=== PATIENT | male | born 1995 | race Caucasian/White ===

== ENCOUNTER 2016-05-06 09:59 | Inpatient (IN) | payer OTHER ==
[~2016-05-06] VITALS: Ht 172.7 cm; Wt 72.7 kg
--- NOTE | ~2016-05-06 | INDIVTXPLN ---
"PATIENT: RODRIGO TELLO E | | [facility] UNIT #: [id number] | [address] AGE/SEX: 21 M : [birth year] | [address] | [place] [phone] ADMIT/REG DATE: 05/06/16 | ROOM: [facility] LOC: ADTC | ADTC | Individualized Treatment Plan Date: 13 MAY 2016 Problem Statement/Issue Identified: RODRIGO HAS CONTINUED TO ABUSE CHEMICALS INSPITE OF THREE PREVIOUS TREATMENT ATTEMPTS WHICH HAS RESULTED IN STRAINED FAMILY RELATIONSHIPS, SABOTAGED EDUCATION EFFORTS, CRIMINAL CHARGES AND A LEGAL RECORD. Goal: RODRIGO WILL IDENTIFY AND TAKE RESPONSIBILITY FOR SPECIFIC EXAMPLES OF CONSEQUENCES RESULTING FROM HIS DRINKING & DRUGING BEHAVIORS AND STINKIN THINKIN. Objectives/Activities to achieve goal: 1. Rodrigo will complete GETTING STARTED IN TREATMENT packet identifying his feelings about being in treatment again, his drinking/drugging history and a brief life story. Rodrigo will process his work with his primary counselor and selected pages in group. Due Date: Complete: Incomplete: 2. Rodrigo will read UbaloRuthieSyntricityIN highlighting thinking and behavioral examples that parallel his own. Rodrigo will process his work and any insights gained with his primary counselor. Due Date: Complete: Incomplete: 3. Rodrigo will complete an honest and thorough STEP ONE identifying specific examples of powerlessness and unmanagability in his addiction. These examples will include examples of preoccupation, high risk/violent behaviors, values compromised, etc. He will process his work with his primary counslor and selected pages with his peer group. Due Date: Complete: Incomplete: 4. Rodrigo will complete and process MY CHANGE PLAN detailing stages of recovery and action he is willing to take to facilite change and ongoing sobriety. He will process his work with his counselor and selected pages with his peer group. Due Date: Complete: Incomplete: Client signature Date Counselor signature Date Outcome/Measurement of Progress Towards Goal: Counselor's signature Date "
--- NOTE | ~2016-05-06 | INDIVTXPLN ---
"PATIENT: RODRIGO TELLO E | | [facility] UNIT #: [id number] | [address] AGE/SEX: 21 M : [birth year] | [address] | [place] [phone] ADMIT/REG DATE: 05/06/16 | ROOM: [facility] LOC: ADTC | ADTC | Individualized Treatment Plan Date: 13 MAY 2016 Problem Statement/Issue Identified: RODRIGO VERBALIZED GUILT AND SHAME FOR THE PAIN, DISAPPOINTMENT AND WORRY HE HAS CAUSED FAMILY MEMBERS IN THE COURSE OF HIS ADDICTION. Goal: RODRIGO WILL TAKE OWNERSHIP OF THESE BEHAVIORS/ATTITUDES AND PROCESS THEM ONE ON ONE WITH FAMILY MEMBERS. Objectives/Activities to achieve goal: 1. Rodrigo will be willing to write and share FEELINGS LETTERS with each of his parents in Family Group. Due Date: Complete: Incomplete: 2. Rodrigo will write a VENT LETTER/FEELINGS LETTER to his brother and will process it one on one or in Family Group if his brother is able to attend. Due Date: Complete: Incomplete: 3. Rodrigo will write a FEELINGS LETTER to his grandfather and a GOODBYE LETTER to his grandmother who passed recently. Rodrigo will be willing to process these letters with his family. Due Date: Complete: Incomplete: Client signature Date Counselor signature Date Outcome/Measurement of Progress Towards Goal: Counselor's signature Date "
--- NOTE | ~2016-05-06 | CLPRLASSUM ---
"PATIENT: KOFI TELLO E | | [facility] UNIT #: [id number] | [address] AGE/SEX: 21 M : [birth year] | [address] | [place] [phone] ADMIT/REG DATE: 05/06/16 | ROOM: [facility] LOC: ADTC | ADTC | Client Problem List/Assessment Summary Date: 13 MAY 2016 Problems identified by the client: PRIMARY SUPPORT GROUP, SOCIAL, OCCUPATIONAL, EDUCATION, FINANCIAL, LEGAL Problems identified by significant others: SAME ABOVE Client's Strengths as Identified by Client: OUTGOING, HELPFUL, KIND WHEN SOBER Problem List: Joshua KIRBY HAS CONTINUED TO ABUSE CHEMICALS INSPITE OF THREE PREVIOUS TREATMENT EPISODES WHICH HAS RESULTED IN LEGAL PROBLEMS AND A CRIMINAL RECORD. Joshua KIRBY NEEDS TO IDENTIFY POTENTIAL REALAPSE TRIGGERS/ISSUES AND DEVELOP A PLAN ON HOW TO DEAL WITH THEM TO AVOID ANOTHER RELAPSE. Joshua KIRBY VERBALIZES GUILT AND SHAME FOR THE NEGATIVE IMPACT HIS ALCOHOL/DRUG USE HAS HAD ON HIS FAMILY. KOFI'S ONGOING CHEMICAL USE HAS CAUSED PARTICULAR ESTRANGEMENT WITH HIS BROTHER. Joshua KIRBY VERBALIZES A BELIEF IN GOD BUT HAS RELIED INSTEAD ON DRUGS/ALCOHOL TO COPE WITH LIFE STRESSORS AND DISAPPOINTMENTS. Code Matthews: T: to be addressed during course of treatment O: problem noted, expected to resolve itself with abstinence--specific tx plan not required R: problem noted, will be referred upon discharge PRIMARY COUNSELOR: JOVON DUNCAN [facility]"
--- NOTE | ~2016-05-06 | INDIVTXPLN ---
"PATIENT: RODRIGO TELLO E | | [facility] UNIT #: [id number] | [address] AGE/SEX: 21 M : [birth year] | [address] | [place] [phone] ADMIT/REG DATE: 05/06/16 | [facility] LOC: ADTC | ADTC | Individualized Treatment Plan Date: 27 MAY 2016 Problem Statement/Issue Identified: RODRIGO NEEDS TO IDENTIFY POTENTIAL RELAPSE TRIGGERS/ISSUES AND DEVELOP A PLAN TO DEAL WITH THEM EFFECTIVELY AND AVOID ANOTHER RELAPSE. Goal: CLIENT WILL EXAMINE AND IDENTIFY PAST THINKING/BEHAVIORS THAT HAVE RESULTED IN RELAPSE. Objectives/Activities to achieve goal: 1. Rodrigo will complete RELAPSE PREVENTION packet and will process his work with primary counselor. Due Date: Complete: Incomplete: 2. Rodrigo will be willing to read ACCEPTANCE/THE PROMISES at least once a day. Client needs to share the positive effects of this with his counselor and peer group. Due Date: Complete: Incomplete: 3. Rodrigo needs to write out his fears and place them in the God Box every day or more if necessary! Client needs to share the positive effects of this with his counselor and his peer group. Due Date: Complete: Incomplete: Client signature Date Counselor signature Date Outcome/Measurement of Progress Towards Goal: Counselor's signature Date "
--- NOTE | ~2016-05-06 | TXPLANREV ---
"PATIENT: KOFI TELLO | | [facility] UNIT #: [id number] | [address] AGE/SEX: 21 M : [birth year] | [address] | [place] [phone] ADMIT/REG DATE: 05/06/16 | ROOM: [facility] LOC: ADTC | ADTC | Treatment Plan/Staffing Review Date: 20 MAY 2016 Treatment plan was reviewed and determined appropriate as written: TREATMENT PLAN DETERMINED APPROPRIATE WRITTEN. Treatment plan was reviewed and the following changes/addition/deletions are necessary: NO CHANGES/ADDITIONS/DELETIONS ARE NECESSARY. Discharge plans were reviewed and determined appropriate as previously documented: CLIENT HAS VERBALIZED WILLINGNESS TO ENTER A DETENTION HOUSE UPON COMPLETION OF RESIDENTIAL TREATMENT. Discharge plans were reviewed and determined to be as follows: TENTATIVE DISCHARGE DATE IS 06/07/2016. Other pertinent issues discussed during this staffing review include: CLIENT IS MAKING GOOD PROGRESS ON WRITTEN WORK. HE STRUGGLES WITH CHANGES HE WILL NEED TO MAKE TO BE SUCCESSFUL IN HIS RECOVERY EFFORTS. HIS WILLINGNESS TO GO TO A DETENTION HOUSE IS A BIG STEP. CLIENT'S FAMILY IS SUPPORTIVE AND ATTENDING EDUCATION PROGRAMING AND FAMILY GROUPS. CLIENT IS WORKING ON STEP ONE, JORGE BABY AND FEELINGS LETTERS. Staff Present: CATE GREY PRIMARY COUNSELOR: JOVON DUNCAN [facility] Client Signature Counselor Signature Date Time "
--- NOTE | ~2016-05-06 | RESCARESUM ---
"PATIENT: KOFI TELLO | | 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 THOUGH CLIENT STUGGLED AT TIMES WITH FRUSTRATION, FEAR, ANGER HE WAS ABLE TO DRAW ON THE SUPPORT OF HIS PEERS AND STAFF. Continued Obstacles to Sobriety/Relapse Issues: ANGER, IMPULSE CONTROL, BTF-OM-WJCCTAP THINKING, IMPATIENCE, SELF-CENTEREDNESS, HYPER-SENSITIVITY, FEAR, FEAR, FEAR, FAILURE TO FOLLOW THROUGH WITH AFTERCARE RECOMMENDATIONS, AA/NA FELLOWSHIP. Family Issues Addressed: FAMILY ATTENDED ALL SESSIONS AND ARE VERY SUPPORTIVE Y Individual Therapy Y Group Therapy Y Educational Series on Substance Abuse Y Parents/Significant Others Attended Family Program N Acute Medical Problems During the Course of Treatment Y Accepting of Substance Abuse Problem Completed AA Step # ONE During This Level of Care Significant Incidences During Treatment: CLIENT IS CONCRETE IN HIS THINKING; OFTEN ASSUMES THE WORST OUTCOME; A FOLLOWER Reason For Discharge: Y Completed Residential TX Goals and Ready For Next Level of Care Continuing Care Plan/Recommendations: Y Sponsor Y AA Meetings/NA Meetings Y [address] [place] PATIENT: KOFI TELLO | | [facility] UNIT #: [id number] | [address] AGE/SEX: 21 M : [birth year] | [address] | [place] [phone] ADMIT/REG DATE: 05/06/16 | ROOM: [facility] LOC: ADTC | ADTC | Summary of Residential Care Specific Continuing Care Plan: CLIENT WILL BE ADMITTED TO THE [facility] SHORTLY AFTER COMPLETION AND DISCHARGE FROM RESIDENTIAL TREATMENT. STAFF RECOMMENDS THAT CLIENT RESIDE AT [facility] FOR A MINIMUM OF SIX MONTHS OR UNTIL DISCHARGED WITH STAFF APPROVAL. CLIENT NEEDS TO FOLLOW ALL GUIDELINES, EXPECTATIONS AND AFTERCARE RECOMMENDATIONS OF [facility]. CLIENT NEEDS TO ATTEND AT LEAST 3 AA/NA MEETINGS EACH WEEK AND MAINTAIN AT LEAST WEEKLY CONTACT WITH AN AA/NA SPONSOR FOR THE NEXT 3-6 MONTHS. PRIMARY COUNSELOR: JOVON DUNCAN [facility]"
--- NOTE | ~2016-05-06 | INDIVTXPLN ---
PATIENT: RODRIGO TELLO E | | [facility] UNIT #: [id number] | [address] AGE/SEX: 21 M : [birth year] | [address] | [place] [phone] ADMIT/REG DATE: 05/06/16 | ROOM: [facility] LOC: ADTC | ADTC | Individualized Treatment Plan Date: 27 MAY 2016 Problem Statement/Issue Identified: RODRIGO PROFESSES A BELIEF IN GOD BUT HIS CHEMICAL USE HAS DIMINISHED HIS TRUST IN GOD. Goal: RODRIGO WILL PRACTICE "LET GO AND LET GOD" ON A DAILY BASIS TO BEGIN TO REBUILD HIS TRUST IN HIS HIGHER POWER. Objectives/Activities to achieve goal: 1. Rodrigo will read LETTING GO OF THE NEED TO CONTROL highlighting those thinking and behavior errors that parallel his own experience. Due Date: Complete: Incomplete: Client signature Date Counselor signature Date Outcome/Measurement of Progress Towards Goal: Counselor's signature Date
--- NOTE | ~2016-05-06 | TXPLANREV ---
"PATIENT: KOFI TELLO | | [facility] UNIT #: [id number] | [address] AGE/SEX: 21 M : [birth year] | [address] | [place] [phone] ADMIT/REG DATE: 05/06/16 | ROOM: [facility] LOC: ADTC | ADTC | Treatment Plan/Staffing Review Date: 27 MAY 2016 Treatment plan was reviewed and determined appropriate as written: TREATMENT PLAN IS APPROPRIATE WRITTEN. Treatment plan was reviewed and the following changes/addition/deletions are necessary: ADDITIONAL TREATMENT PLANS HAVE BEEN CREATED TO FOCUS ON SPIRITUALITY, ANGER/RESENTMENTS Discharge plans were reviewed and determined appropriate as previously documented: DISCHARGE PLANS ARE APPROPRIATE PREVIOUSLY DOCUMENTED. Discharge plans were reviewed and determined to be as follows: CLIENT HAS SCREENED WITH [facility] AND [facility]. STAFF RECOMMENDATION PREFERS THAT CLIENT ENTER [facility] BECAUSE OF THE STRUCTURE AND ACCOUNTABILITY THEY WILL PROVIDE. TENTATIVE DISCHARGE DATE IS 07 JUNE 2016. CLIENT WILL LIKELY BE DISCHARGED EARLIER IF A BED BECOMES AVAILABLE AT [facility]. Other pertinent issues discussed during this staffing review include: CLIENT HAS DONE GOOD WORK ON WRITTEN OBJECTIVES. HIS FAMILY HAS BEEN HERE AND FEELINGS LETTERS PROCESSED WHICH SEEMED TO PROVIDE HEALING. CLIENT STRUGGLES WITH SELF-WILL VS GOD'S WILL WHICH HE WILL BE WORKING ON UNTIL HE DISCHARGES. Staff Present: CATE VELÁZQUEZ PRIMARY COUNSELOR: JOVON DUNCAN [facility] Client Signature Counselor Signature Date Time "
--- NOTE | 2016-05-06 18:39 | NUR ---
Education: 1 Hour. Client watched "Picking up the Pieces" video.
--- NOTE | 2016-05-06 19:29 | NUR ---
ADMISSION NOTE Client is a 21 y/o single male who states that he self referred to treatment and was brought here today by a friend. Client resides in [place] with his mom and dad. Client anticipates family group participation from his mom, dad and brother. Client states NKMA and brings no medications with him today. Client states DOC is alcohol, last used a week ago when client was consuming a 12-pack a day. Client also stqates marijuana use, last used a week ago when charlotte was using 3.5 grams daily. Rights/Responsibilities: Copy given and explained to client. Signed and accepted by client. Client oriented to physical lay out of the ADTC unit, given Big Book and admission packet. A Sergey was assigned. Cj
--- NOTE | 2016-05-06 23:06 | NUR ---
Tech note: Clt played a game for recreation and attended onsite AA mtg. Clt searched, checked into room, seen by and had first intro to grp. Clt was redirected for walking halls without shoes on. SE was coming tx.
--- NOTE | 2016-05-07 04:12 | NUR ---
tech note: client was motionless in no distress at all bed checks.
--- NOTE | 2016-05-07 11:29 | NUR ---
INDIVIDUAL SESSION 1 HR: Client ORIENTED TO TREATMENT GUIDELINES, GOALS AND OBJECTIVES. Client verbalized agreement. Stated that he was here six years ago. He is 21 now; this will be his fourth effort at treatment. Client admits that he has never experienced any extended sobriety. Has never followed through with aftercare. Client has completed three years at [employer]. 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 Has lost a lot. Client identified Drug of Choice as alcohol, pot on a daily basis. IN the past 3-4 months, he has been using meth 2-3 times per week due to a co-worker. Client is to work on GETTING STARTED packet. We completed visitors list. Session 05/10
--- NOTE | 2016-05-07 11:33 | NUR ---
FAMILY CONTACT: Msg left for client's mom. He says they will participate.
--- NOTE | 2016-05-07 11:33 | NUR ---
TRAUMA: Client denies any trauma.
--- NOTE | 2016-05-07 13:00 | NUR ---
PEER REVIEWS 1 HR: Clt participated in peer review process and was able to give open and honest feedback to those receiving a review.
--- NOTE | 2016-05-07 16:28 | NUR ---
Tech Note: Client watched a film entitled "Nightmare on Drug [address]" and is working on Getting Started.
--- NOTE | 2016-05-07 23:02 | NUR ---
TECH NOTE: Client participated in reading guidelines, watched tv/movies, and attended off site AA meeting. Redirected for chewing smokeless tobacco at [address] SE: meeting with counselor
--- NOTE | 2016-05-08 04:22 | NUR ---
BED NOTE: Client was in bed, motionless with eyes closed all bed checks
--- NOTE | 2016-05-08 16:34 | NUR ---
Tech Note: Client went to an off-site AA Meeting. Client stated that he is working on Feeling Letters. Client received visits.
--- NOTE | 2016-05-08 21:09 | NUR ---
Tech note: Client watched basketball or worked on Collarityed projects for rec, attended offsite AA meeting. Watched Tv and movies SE:visits
--- NOTE | 2016-05-09 04:26 | NUR ---
BED NOTE: Client was in bed, motionless with eyes closed all three bed checks.
--- NOTE | 2016-05-09 16:56 | NUR ---
Tech Note: Client participated in Big Book Study, chapter two. Client stated that he is working on, "How to Get Started in Treatment."
--- NOTE | 2016-05-09 23:17 | NUR ---
Tech Note : Client attended AA panel/speaker. Client went to an onsite CORPORATE SECURITIES RESEARCH ANALYST meeting. SE: Meeting
--- NOTE | 2016-05-10 05:06 | NUR ---
Bed note : Client was asleep and in no distress at all bed checks.
--- NOTE | 2016-05-10 09:58 | NUR ---
Tech notes: Client is working on Getting started.
--- NOTE | 2016-05-10 11:30 | NUR ---
Experiential Group 1.5 hr/ Clients all participated in family sculpturing by role-playing, feedback or relating. Clients discussed coming from healthy and unhealthy homes.
--- NOTE | 2016-05-10 13:28 | NUR ---
Education note: Client watched a video "It can't happen to me".
--- NOTE | 2016-05-10 16:58 | NUR ---
RECOVERY 101 1 HR/ Clients all shared and asked questions in discussions on recovery, what to work on in treatment, how to get a sponsor, opening up while here to get everything out, feelings letters, family program and EMDR therapy.
--- NOTE | 2016-05-10 18:13 | NUR ---
Education Note: 1 hour lecture on feelings given by counselor
--- NOTE | 2016-05-10 22:37 | NUR ---
TECH NOTE: Client played charades in REC and attended on site NA meeting. SE: NA meeting
--- NOTE | 2016-05-11 04:27 | NUR ---
Bed note: Client was in bed with eyes closed and no distress at all bed checks.
--- NOTE | 2016-05-11 11:30 | NUR ---
GROUP 1.5 HRS. 1:9 Group discussion included FEELINGS, FAMILY RELATIONSHIPS and effects on family. This client was confronted on tipping in his chair and marker in his hand and he advised that he hadn't heard that before. He did offer some appropriate feedback.
--- NOTE | 2016-05-11 14:00 | NUR ---
FAMILY CONTACT: Called mom back during session with this client. Family session is scheduled for 05/24, but client's parents and possibly his grandfather will start FMILY EDUCATION 05/13. Mom encouraged client to include his older brother in his treatment.
--- NOTE | 2016-05-11 14:50 | NUR ---
Education 0.5 Hour: Client attended a presentation by an outwside speaker who spoke on, "Cross Addiction."
--- NOTE | 2016-05-11 15:04 | NUR ---
Tech Note: Client particiipated in light stretching for morning exercise period and went for an outdoor walk in the afternoon. Client stated that he is working on, "How to Get Started in Treatment."
--- NOTE | 2016-05-11 18:00 | NUR ---
INDIVIDUAL SESSION 1 HR: Continue to review client's BIO/PSYCHO/SOCIAL ASSESSMENT. Client did talk more about his relationship with his brother (2 yr older). Client stating that brother looks down on him and has a lot of hostility toward client due to client's chemical use. Client reports that this seemed to start when he was 13 y/o or so, which also coordinates with client's early use/abuse of alcohol and other chemicals. Client admitted that brother's friends seemed to shift early on and became client's friends. 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 Both have been involved in sports through high school, but client was the one who appears to have excelled with little effort. Client also described his brother as rigid and too serious whereas, client is just the opposite, likes to push the envelop and is very outgoing. Easy to see why brother might have hard feelings. Client was also able to see that brother has had to live in client's shadow. Because of client's success in sports and all the trouble he has been in, he has stolen the limelight. Client seemed to be able to see things from a different perspective and now wants to place brother on the visitor's list for the weekend. He is working on GETTING STARTED packet. Session 2/2.
--- NOTE | 2016-05-11 23:14 | NUR ---
Tech note: Client participated in beaded project for rec and attended an onsite AA meeting. SE; meeting with counselor
--- NOTE | 2016-05-12 04:02 | NUR ---
Bed Note; Client was asleep and in no distress at all bed checks.
--- NOTE | 2016-05-12 09:59 | NUR ---
Tech notes: Client is working on Getting Started.
--- NOTE | 2016-05-12 11:57 | NUR ---
AM GROUP 9:1.5 HR: Client and peers participated in the ORIENTATION OF A NEW PEER by identifying GROUP PURPOSE, GUIDELINES, GOALS AND OBJECTIVES. Clients were otherwise active in posing clarifying questions, relating and sharing from their own experience and providing encouragement and support. For those who processed assignments, much of the focus detailed unstable families, living conditions, moving from town to town which made it nearly impossible to establish trusting relationships. This client was active but admitted that it was difficult for him to relate to some that were processing as he has had a very different upbringing. Client was empathetic and supportive of the trials they had experienced in their lives.
--- NOTE | 2016-05-12 12:45 | NUR ---
Education note: Client attended education by [facility].
--- NOTE | 2016-05-12 17:46 | NUR ---
SPIRITUaL EDUCATION 1 HR. Todays topic after orienting newcomers was GRATITUDE with information taken from ATTITUDES OF GRATITUDE.
--- NOTE | 2016-05-12 19:20 | NUR ---
Education: 1 Hour. Client attended "Unresloved Anger" lecture and discussion presented by staff.
--- NOTE | 2016-05-12 23:11 | NUR ---
Tech note; Client played catch phrase for rec and attended an onsite NA meeting. SE; rec
--- NOTE | 2016-05-13 04:36 | NUR ---
Bed Note: Client was asleep and in no distress at all bed checks.
--- NOTE | 2016-05-13 10:49 | NUR ---
Tech Note: Client participated in light stretching for morning exercise and stated that he is working on, "How to Get Started in Treatment."
--- NOTE | 2016-05-13 11:30 | NUR ---
AM GRP 1.5 HRS, Ratio 1:9/ Clt participated in grp discussion and could relate to being in tx in the past, not doing what he was told to do, the stupid and insane things he did in his addiction.
--- NOTE | 2016-05-13 17:00 | NUR ---
FAMILY EDUCATION 3 HRS. Client was accompanied by his parents. They took part in the discussion on the disease concept. Client shared chemical history and consequences. Both parents were tearful at times during discussion.
--- NOTE | 2016-05-13 17:49 | NUR ---
Education 1 Hour: Client heard a presentation from a member of the recovery community who shared his experience, strength and hope.
--- NOTE | 2016-05-13 23:41 | NUR ---
TECH NOTE: Client played Catch Phrase for REC, participated in Guided Meditation and attended on site AA meeting. redirected for laughing during GM SE: family
--- NOTE | 2016-05-14 02:20 | NUR ---
Education 1HR: Clt watched educational video entitled "Don't Meth With Me".
--- NOTE | 2016-05-14 04:52 | NUR ---
BED NOTE: Client was in bed, eyes closed and motionless all three bed checks
--- NOTE | 2016-05-14 11:30 | NUR ---
Group 1.5hr/ 11:1 Clients heard peer share GS packet, gave feedback and got into deep discussions about recovery.
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
--- NOTE | 2016-05-14 15:46 | NUR ---
Tech Note: Client watched a video entitled "The Enablers" and is working on Getting Started and the Big Book.
--- NOTE | 2016-05-14 20:49 | NUR ---
TECH NOTE: Client participated in reading guidelines, watched TV/movies, used phone and attended offsite AA meeting. Client was redirected for having arm hanging on female peer. Was redirected and argued with tech, said "I just like to argue with the tech" SE: meeting with counselor
--- NOTE | 2016-05-15 04:48 | NUR ---
BED NOTE: Client was in bed, motionless with eyes closed all bed checks.
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
--- NOTE | 2016-05-15 15:40 | NUR ---
Tech notes: Client attended NA panel this morning and working on Step 1, [place].
--- NOTE | 2016-05-15 18:40 | NUR ---
tech note: client attended offsite recovery event.
--- NOTE | 2016-05-16 04:39 | NUR ---
Bed Note: Clt lay motionless in bed with eyes closed showing no distress at all bed checks.
--- NOTE | 2016-05-16 15:15 | NUR ---
Tech Note: Client participated in big book study and is working on fotobabble.
--- NOTE | 2016-05-16 23:34 | NUR ---
Tech note: Watched [employer] SE:[employer]
--- NOTE | 2016-05-17 04:35 | NUR ---
BED NOTE: Client was in bed, motionless, with eyes closed all bed checks.
--- NOTE | 2016-05-17 10:25 | NUR ---
Tech notes: Client is working on Step1, Fl's, Rekha Haile
--- NOTE | 2016-05-17 11:30 | NUR ---
Group 1.5hr/ 2:22 Clients all participated in THE WALL reading, drawing and sharing about their resendez with the group showing character defects and relapse triggers, plus what has helped them go gain hope and support in taking down their wall.
--- NOTE | 2016-05-17 12:55 | NUR ---
Education note: Client attended education by [facility], HIV testing.
--- NOTE | 2016-05-17 17:00 | NUR ---
FAMILY EDUCATION 3 HRS. Client was accompanied by his parents. They took place in the discussion on the family roles, codependency and detachment. Client related to scapegoat and mascot roles while peers see him as family hero on the unit.
--- NOTE | 2016-05-17 18:21 | NUR ---
Education: 1 Hour. Client attended "Forgiveness" lecture given by staff.
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
--- NOTE | 2016-05-17 22:58 | NUR ---
tech note: client attended Family Session. SE: Family.
--- NOTE | 2016-05-18 05:16 | NUR ---
Tech Note: Clt lay motionless in bed with eyes closed showing no distress at all bed checks.
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
--- NOTE | 2016-05-18 13:51 | NUR ---
Education 1 Hour: Client attended a presentation on "Tobacco Educaton."
--- NOTE | 2016-05-18 15:37 | NUR ---
Tech Note: Client participated in light stretching for morning exercise and walked in the halls in the afternoon. Client stated that he is working on Step One and Feelings Letters.
--- NOTE | 2016-05-18 16:13 | NUR ---
Relapse Prevention, 1.0, Client attended and actively participated in relapse prevention education which focused on the relapse quiz "What Do You Know About Relaps?"
--- NOTE | 2016-05-18 22:50 | NUR ---
Education note: 1 hour, lecture given by counselor on what godinez are you willing to pay.
--- NOTE | 2016-05-18 23:16 | NUR ---
Tech note: Instead of rec clients went to an alumni meeting and attended an onsite AA meeting. SE; Meeting
--- NOTE | 2016-05-19 04:24 | NUR ---
Bed Note: Client was in bed with eyes closed and in no distress at all bed checks.
--- NOTE | 2016-05-19 10:26 | NUR ---
Tech Notes: Client is working on Fl's.
--- NOTE | 2016-05-19 10:34 | NUR ---
SPIRITUAL EDUCATION 1 HR. Topics today were on getting out of self centered behavior and recovery slogans. Clients made BB bookmarks w slogans and also anonymously wrote welcoming letters for newcomers.
--- NOTE | 2016-05-19 12:58 | NUR ---
AM GROUP 8:04/11.5 HR: Client and peers offered feedback and examples from personal experience as individuals processed assignments and issues. This did a good job processing his GETTING STARTED PACKET.
--- NOTE | 2016-05-19 17:55 | NUR ---
ducation Note: Client attended education speaker Connor
--- NOTE | 2016-05-19 20:42 | NUR ---
Education: 1 hour lecture on boundaries given by counselor
--- NOTE | 2016-05-19 22:25 | NUR ---
Tech note : Client participated in rec by playing catch phrase and attended an onsite NA meeting. SE; NA meeting
--- NOTE | 2016-05-20 03:53 | NUR ---
Bed note : Client was motionless and in no distress at all bed checks.
--- NOTE | 2016-05-20 10:31 | NUR ---
Tech Note: Client participated in light stretching for morning exercise. Client stated that he is working on writing Feelings Letters and Step One.
--- NOTE | 2016-05-20 11:30 | NUR ---
AM GRP 1.5 HRS, Ratio 1:9/ Clt sat mostly quiet, but at one point could relate to some of the converstation. Clt stated he hasn't gotten into a lot of trouble but he has made empty promises to his parents, so they are having a hard time forgiving him.
--- NOTE | 2016-05-20 13:57 | NUR ---
Education 1 Hour: Client watched the vidoe, "Predator" by Félix Ramírez.
--- NOTE | 2016-05-20 15:53 | NUR ---
Step education/1 hr/ Focus was on step 12 Having had a spiritual awakening as a result of these steps... Each person completed some questions on paper and then we discussed answers. This client participated.
--- NOTE | 2016-05-20 16:48 | NUR ---
INDIVIDUAL SESSION 1 HR: Client looked over and signed [place] PLAN REVIEW. Client beginning to process his STEP ONE with first and second pages, i.e. D/A history and financial. Client came up with $130,000 which is likely an underestimate. Client signed RELEASES for [facility]. He is stressing that there won't be a bed available. I will also look into [place]. Client is working on [facility] BABY & FEELINGS LETTERS. His family will be back Tuesday night for Family Group.
--- NOTE | 2016-05-20 21:01 | NUR ---
Education: 1 Hour. Client attended "Spiritual Awakening" video.
--- NOTE | 2016-05-20 23:08 | NUR ---
Tech Note: Client played a game for recreation and attended onsite A.A. Meeting. SE: Group
--- NOTE | 2016-05-21 04:16 | NUR ---
Tech Note: Client was motionless with no distress at all bed checks.
--- NOTE | 2016-05-21 10:15 | NUR ---
DISCHARGE PLANNING: Client's paperwork sent to [facility]
--- NOTE | 2016-05-21 12:10 | NUR ---
Group 1.5 Hr Ratio 1:9/Topics today were feelings letters and two new peers were orientated to group rules and goals. Client shared how he could relate a little but was quiet mostly.
--- NOTE | 2016-05-21 14:28 | NUR ---
PEER REVIEWS 1 HR: Clt participated in peer review process and was able to give open and honest feedback to those receiving a review.
--- NOTE | 2016-05-21 15:00 | NUR ---
INDIVIDUAL SESSION 1 HR: Client processing from STEP ONE. He appeared to do a thorough job on his D/A history. Not sure how genuine it is, as client appears to be making extra effort to "look good." Reminds me often that "this treatment is different." Time will tell. Client is finishing up Step One and will be working on feelings letters over the weekend. His family will be back Tuesday night.
--- NOTE | 2016-05-21 15:53 | NUR ---
Tech Note: Client joined in outdoor group walk, watched "Marijuana" video (by Félix Ramírez) and is working on Feelings Letters and the Big Book.
--- NOTE | 2016-05-21 23:23 | NUR ---
TECH NOTE: Client participated in reading guidelines, watched tv/movies and attended optional AA meeting. Client tried taking a cup of coffee out of the front lobby. Tech approached him and asked for the cup of coffee. He immediately handed it over and admitted his behavior and why it was wrong. SE: walk
--- NOTE | 2016-05-22 04:23 | NUR ---
Bed Note: Clt lay motionless in bed with eyes closed showing no distress at all bed checks.
--- NOTE | 2016-05-22 16:11 | NUR ---
Tech Note: Client attended an off-site AA meeting. Client stated that he is working on writing Feelings Letters. Client received visitors.
--- NOTE | 2016-05-22 20:07 | NUR ---
TECH NOTE: Client played Charades in REC, attended off site AA meeting and watched tv/movies SE: visitors/ REC
--- NOTE | 2016-05-23 04:43 | NUR ---
Bed Note: Clt lay motionless in bed with eyes closed showing no distress at all bed checks.
--- NOTE | 2016-05-23 14:51 | NUR ---
Tech Note: Client stated that he is working on writing Feelings Letters. Client attended spiritism.
--- NOTE | 2016-05-23 23:22 | NUR ---
Tech Note: Client attended A.A.Panel. Client used phone and watched movies. Client attended [employer] meeting. SE: taking a nap
--- NOTE | 2016-05-24 04:32 | NUR ---
Bed Note: Clt lay motionless in bed with eyes closed showing no distress at all bed checks.
--- NOTE | 2016-05-24 09:50 | NUR ---
Tech Notes: Client is working on Fl's.
--- NOTE | 2016-05-24 12:55 | NUR ---
Morning Group, 04/20, 1.5 hours, Client attended and actively participated in group. Client shared his fear of relapsing and that he is trying to do things different this time and hopes he can make it. Client shared that he wants to learn how to pray and ask for help from God and was accepting of his peers advice.
--- NOTE | 2016-05-24 13:00 | NUR ---
INDIVIDUAL SESSION 1 HR; Client processed FEELINGS LETTERS he has written to each parent and his brother. He did well with these. Very well. Client again chastized himself for stuff he has done and heard that carrying a lot of guilt will likely lead to relapse. Client encourged to make amends then move on. Parents will be here tonight to process letters. I did call client's mother to see if brother was coming, but mom said no.
--- NOTE | 2016-05-24 13:49 | NUR ---
raimundo note: Client attended speaker Mian Barnhart
--- NOTE | 2016-05-24 15:58 | NUR ---
Recovery 101 1hr/ Clients all filled out Questionaire on consequences of their any of the chemicals they have used to help dispel any minimizing. Some clients discussed relating to most all of the consequences, all discussed early stage symptoms of addiction they would of had in first 1-2 years of use, discussed early/middle/late stages, disease concept and a definition of addiction that includes all stages (focussed on the loss of control and risking further problems). Many asked good questions and shared personal
--- NOTE | 2016-05-24 18:04 | NUR ---
DISCHARGE PLANNING: OD will be here Thurs 2P to screen client. They have no openings at [facility].
--- NOTE | 2016-05-24 21:01 | NUR ---
FAMILY GROUP 2 HR: Client, peers and attending family members heard several clients process FEELINGS LETTERS. Much of the focus was on the impact addiction makes on the other family members, especially the children. One male peer processed a heart-renching letter to his son who has been deeply affected. Many were tearful, still others related and shared their own pain resulting from growing up in a chemically dependent home. There was sharing about broken trust while another shared his need to accept and begin grieving his mother's . This client attended with his parents and his older brother who showed up unexpectedly. Client processed meaningful FEELINGS LETTERS with each one. Many tears and expressed hopes that this will be a turning point for him and will help to rebuild his family.
--- NOTE | 2016-05-24 21:37 | NUR ---
med note: client complained of headache pain level 7 motrin given
--- NOTE | 2016-05-24 22:49 | NUR ---
Client attended Family. SE: Family
--- NOTE | 2016-05-24 23:05 | NUR ---
Education Note: One hour lecture on adult children of alcoholics given by counselor.
--- NOTE | 2016-05-25 04:08 | NUR ---
Bed Note: Client was in bed with eyes closed and motionless at all bed checks.
--- NOTE | 2016-05-25 11:30 | NUR ---
Morning Group, 04/19. 1.5 hours, Client attended and actively participated in group discussion. Client shared his fear of leaving treatment and not being able to stay away from old friends. Client shared he wants to help others and is "too nice" which causes him to want to help his friends which always leads him back to drinking.
--- NOTE | 2016-05-25 14:50 | NUR ---
Tech Note: Client participated in group walk for exercise, watched the first half of [employer] for education and is working on [employer] and the Big Book.
--- NOTE | 2016-05-25 16:00 | NUR ---
Relapse Prevention, 04/26, 1.0 hours, Client attended and actively participated in relapse education which focused on compulsive behaviors and relapse.
--- NOTE | 2016-05-25 16:42 | NUR ---
Education Note: Client participated in Relapse Prevention education.
--- NOTE | 2016-05-25 18:22 | NUR ---
Education: 1 HOUR. Client attended "Codependency" lecture given by staff.
--- NOTE | 2016-05-25 22:28 | NUR ---
TECH NOTE: Client played Catch Phrase for REC, participated in Guided Meditation, and attended AA meeting. SE: interview tomorrow with Madie and Gini
--- NOTE | 2016-05-26 04:35 | NUR ---
tech note: client was motionless in no distress @ all bed checks.
--- NOTE | 2016-05-26 11:19 | NUR ---
Tech notes: Client is working on Letting Go and mtg with OD.
--- NOTE | 2016-05-26 12:00 | NUR ---
AM GROUP 8:1/1.5 HR: Client and peers heard three clients process from assignments. Most were able to relate to behaviors and examples shared. Several asked clarifying questions, while others share from their own experiences.This client processed PAGE 10 from his STEP ONE which listed examples of values compromised. Client did a good job with this and though he seemed angry and sullen coming in to group, he gradually improved his attitude as he described behaviors that were hurtful to people he deeply cares about. By the time he shared that page, client was seeing that he had been hanging around with people with much different values and goals than he was taught and had lived for the majority of his life.
--- NOTE | 2016-05-26 13:20 | NUR ---
Education note: Client attended speaker Theo for education.
--- NOTE | 2016-05-26 17:26 | NUR ---
SPIRITUAL EDUCATION 1 HR. We oriented newcomers to spirituality group, and todays activities were putting on presentations from parts of TOWARDS SPIRITUALITY book.
--- NOTE | 2016-05-26 23:16 | NUR ---
tech note: Client played Pictionary for recreation & attended onsite NA meeting. During recreation client was having a peer massage his shoulders, client was redirected by tech to stop. SE: Interview.
--- NOTE | 2016-05-26 23:30 | NUR ---
Eduction: 1 Hour. Client attended "Disease Concept" lecture.
--- NOTE | 2016-05-27 05:39 | NUR ---
tech note: Client was motionless in no distress at all bed checks.
--- NOTE | 2016-05-27 10:24 | NUR ---
Tech Note: Client participated in Spiritual Enrichment. Client stated that he is working on, "Letting Go of the Need to Control."
--- NOTE | 2016-05-27 12:04 | NUR ---
Group 1.5 Hr Ratio 1:11/Topics today were orientating two new members to group rules and goals. A feelings letter and dealing with anger. Client shared he is worried about what he is going to do after he leaves treatment.
--- NOTE | 2016-05-27 15:34 | NUR ---
Education 1 Hour: Client heard a panel of speakers from the local recovery community, who shared their experience, strength and hope.
--- NOTE | 2016-05-27 16:59 | NUR ---
INDIVIDUAL SESSION/CRISIS INTERVENTION 1 HR: Client came for session acting very cocky. Staff had prepared [place] PLAN REVIEW but talked to him about his need to make his words and actions match. Client got defensive and started talking about leaving treatment. As we talked, client admitted that he was hurt and angry that a male peer got accepted by [facility] and he didn't. I showed client confirmation that client is approved, but that they do not have a bed available for him and besides, he has not completed treatment yet!! Client very resistant; just couldn't seem to get it through his head that the y were not rejecting him. Did have him talk to Cyn and she was able to get him to agree to stay. Ten minutes later, client was at the tech station asking tech to get his bags as he was leaving tx. At that very moment, the mail arrived and there was a card for this client from his mother. In the envelope, was a wrist band saying his name and LET GO LET GOD. We were all in tears but it was enough to get his attention and he is still here!!
--- NOTE | 2016-05-27 17:08 | NUR ---
Step education/1 hr/ Focus was on step one. Each person completed a worksheet on this topic and then chose 4 from sheet to share out loud. This person participated.
--- NOTE | 2016-05-27 23:25 | NUR ---
TECH NOTE: Client redecorated the building for [employer], participated in Guided Meditation and attended on-site AA meeting. Client was talked into staying when tried to leave AMA. SE: card from Mom
--- NOTE | 2016-05-28 04:38 | NUR ---
Bed Note: Clt lay motionless in bed with eyes closed showing no distress at all bed checks.
--- NOTE | 2016-05-28 11:52 | NUR ---
Group 1.5 Hr Ratio 1:11/Topics today were a Getting Started packet, Orientating a new client to group rules and goals and issues. Client shared how grateful he is that others convinsed him to stay yesterday and he learned how important it is to have a positive support system.
--- NOTE | 2016-05-28 13:00 | NUR ---
PEER REVIEWS, 1 HR: Clsreedhar participated in peer review process and received his own. He heard he gives up too quickly when things go wrong, he's worried about making himself known, lets anger make decisions for him, is afraid and confused, unwilling to do the leg work to meet his potential, is hurt, ashamed, sad, angry, gives up too easy, trying to follow in his brothers footsteps, is a quitter, lets the past control him, thinks he's not good enough, impatient, doesn't have self-value, gives up on himself, has always had his parents to fall back on, and he needs a support system in recovery. He felt afraid and glad.
--- NOTE | 2016-05-28 15:50 | NUR ---
Tech Note: Client watched the second half of Pleasure Unwoven for education and is working on Change Plan, Relapse Prevention and Letting Go of the Need to Control.
--- NOTE | 2016-05-28 20:33 | NUR ---
Tech note: client watched tv and movies, attended optional offsite AA mtg SE:peer review
--- NOTE | 2016-05-29 04:37 | NUR ---
Bed note: client was in bed with eyes closed and no distess at all bed checks.
--- NOTE | 2016-05-29 16:31 | NUR ---
Tech Note: Client attended N.A.Panel and is working on Change Plan/Relapse Triggers and also had visit.
--- NOTE | 2016-05-29 20:16 | NUR ---
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 Client talked on the phone & watched tv. SE: family visit.
--- NOTE | 2016-05-30 05:01 | NUR ---
Bed Note : Client had eyes closed and in no distress at all bed checks.
--- NOTE | 2016-05-30 16:37 | NUR ---
Tech Note: Client is working on change plan and relapse triggers. Client went to catholic, had visits and toop nap
--- NOTE | 2016-05-30 23:39 | NUR ---
TECH NOTE: Client attended AA panel, participated in community clean and watched tv/movies. Redirected for comments to techs and arguing with redirection ie phones, scheduled programming and feet on furniture. SE: visitors
--- NOTE | 2016-05-31 04:15 | NUR ---
BED NOTE: Client was in bed, motionless with eyes closed all three bed checks.
--- NOTE | 2016-05-31 10:41 | NUR ---
Tech notes: Client is working on Change Plan, Relapse Prevention, Need to Control.
--- NOTE | 2016-05-31 11:30 | NUR ---
Experiential Group 1.5 hr/ Clients all participated in family sculpturing by role-playing, feedback, and relating. They also shared what they needed to get help with and a gratitude. Client wants help with patience and is grateful for family.
--- NOTE | 2016-05-31 13:32 | NUR ---
Education note: Client watched video "It can't happen to me"
--- NOTE | 2016-05-31 16:00 | NUR ---
RECOVERY 101 1 HR/ Clients learned about Fundamentals of recovery and tools from AA/NA. They participated by sharing what they hear at meetings that are important for their recovery like: working the steps, how to get and use sponsors, reading C.A.L. literature, service work, HP concept, opening up, slogans, using the Serenity Prayer, attending functions, what is closed and open meetings, etc.
--- NOTE | 2016-05-31 18:25 | NUR ---
DISCHARGE PLANNING: Word received today that client has a bed at [facility]. We will discharge early and they will pick him up 06/04 at 1P.
--- NOTE | 2016-05-31 19:08 | NUR ---
Education 1HR: Clt attended lecture given by counselor on "Communication".
--- NOTE | 2016-05-31 22:39 | NUR ---
Tech note: Client participated in group by playing catch phrase. Client attended an onsite NA meeting. SE: Getting accepted to the [facility].
--- NOTE | 2016-06-01 05:08 | NUR ---
Bed note : Client was motionless with eyes closed at all bed checks.
--- NOTE | 2016-06-01 12:53 | NUR ---
GROUP 1.5 HRS. 1:8 Clients oriented new peer to purpose and rules of group. Group discussion included effects on loved ones and family/kids as well as relapse triggers and prevention. This client active in discussion about relapse and identified that once he makes up his mind to drink/use, there is nothing to change it. Client was encouraged to decide to stay clean and sober.
--- NOTE | 2016-06-01 15:02 | NUR ---
INDIVIDUAL SESSION 1 HR: Client processing from MY CHANGE PLAN and is doing well with this. Client processed what he has completed and will work to get the balance completed for our final session tomorrow. I explained to him that he will have final session with me tomorrow (Tue) and needs to be packed and ready to go by breakfast morning. He will attend Community Meeting, Group, have lunch here, then [facility] will pick him up around 1P 06/03. Client verbalizes lots of things he has learned here. Continually states that he has learned more here that past treatment combined. I continually remind him that he may have been more willing this time and has suffered more consequences as his addiction has progressed.
--- NOTE | 2016-06-01 16:36 | NUR ---
Tech Note: Client watched video The Enabler and is working on Relapse Prevention, Change Plan and Need to Control pkts.
--- NOTE | 2016-06-01 18:48 | NUR ---
Education: 1 Hour. Client attended presentation given by [facility] AIDS/STDS/HIV. HIV testing was available.
--- NOTE | 2016-06-01 20:16 | NUR ---
Relapse Prevention,04/30 1.0, Client attended and participated in relapse prevention education which focused on internal and external triggers.
--- NOTE | 2016-06-01 23:17 | NUR ---
Tech note: Client participated in rec by playing pictionary. Client went to guided meditation and attended an onsite AA meeting. SE: Peer leaving
--- NOTE | 2016-06-02 05:34 | NUR ---
tech note: client was motionless in no distress at all bed checks.
--- NOTE | 2016-06-02 10:21 | NUR ---
Cristina Notes: Client is working on Change Plan and mtg with fabián
--- NOTE | 2016-06-02 11:30 | NUR ---
GROUP 1.5 HRS. 1:10 Clients oriented new peer to purpose and rules of group. Peers processed HOW TO GET STARTED IN TREATMENT and STEP 1 ASSIGNMENTS including compromising values and effects on others. This client appeared attentive and offered appropriate feedback.
--- NOTE | 2016-06-02 16:00 | NUR ---
SPIRITUAL EDUCATION 1 HR. We started a two part education on Forgiveness today and group discussion on quiroz points.
--- NOTE | 2016-06-02 17:36 | NUR ---
INDIVIDUAL SESSION 1 HR: Client completed processing MY CHANGE PLAN/RELAPSE WARNING SIGNS and shared insights from LETTING GO OF THE NEED TO CONTROL. Client appears to have made significant progress in this treatment as evidenced by his willingness, ability to identify his pattern of quit/run, and how he covers his fear with anger. Completed CONTINUED CARE PLAN and presented medallion. [facility] will pick him up tomorrow right after lunch.
--- NOTE | 2016-06-02 23:28 | NUR ---
Tech note:Client participated in rec-worked on beaded projects SE: got his 30 day coin
--- NOTE | 2016-06-02 23:41 | NUR ---
Education: 1 hour lecture on step 2 & 3 given by counselor
--- NOTE | 2016-06-03 04:40 | NUR ---
Bed note: client was in bed with eyes closed and no distress at all bed checks.
--- NOTE | 2016-06-03 11:52 | NUR ---
Group 1.5hrs 1:10 Two new clients were orientated about group goals and rules. Feelings letters were shared and feedback was given by peers. Client shared how other treatment stays were and how he is receiving more this time. Client will also be leaving today. Student- Victor Hugo Carranza
--- NOTE | 2016-06-03 18:21 | NUR ---
DISCHARGE NOTE Client completed treatment and left the facility, taking all personal belongings with him, including home medications that had been stored at the pharmacy. Client left with a senior outside sales representative from a snf house. Discharge instructions were reviewed and a signed copy provided to the client.
--- NOTE | 2016-07-25 15:25 | DS ---
ADMIT: 05/06/2016 RM/LOC: [facility] MR#: [id number] [id number] [address] [facility] [address] [place] [id number] RODRIGO TELLO [address] [place] [address] General Discharge Summary SEX: M AGE: 21 : 1995 ADMISSION DATE: 05/06/2016 DISCHARGE DATE: 06/03/2016 INDICATION FOR HOSPITALIZATION: Rodrigo is a 21-year-old, single, white male, with previous treatments in 2010 and 2015 with a recent second offense DUI, who was admitted to residential level treatment. His drug of choice on admission is alcohol. Second drug of choice is cannabis. Third drug of choice is opiates. Fourth drug of choice is benzodiazepines. Please see his admission H and P for the details regarding his history of present illness, past medical history, physical exam, and assessment at the time of hospitalization. HOSPITAL COURSE: On admission, Rodrigo was admitted to our residential level treatment gr[facility]. He was started on multivitamin and thiamine given his history of alcohol abuse and dependency. Lamisil cream was ordered for yeast dermatitis. His primary care counselor assigned was Ilan Hawkins [facility]. During treatment, he underwent individual and group therapy sessions on drug and alcohol abuse and dependency. He completed an educational series on substance abuse. His family was actively involved in family portion of his treatment program. Relapse triggers were identified and relapse prevention plan was outlined. He was overall accepting of his substance abuse problems. He completed step 1 of Alcoholics Anonymous. Reason for discharge is completion of residential level treatment goals. Aftercare recommendations include sponsor assignment with active AA and NA meeting involvement. It was recommended he have shelter house placement. He was to reside at the [facility] for a minimum of 6 months. DISCHARGE MEDICATIONS: Medications at the time of discharge include: 1. Multivitamin one daily. 2. Thiamine 100 mg daily. 3. BuSpar 10 mg b.i.d. 4. Effexor extended release 75 mg once daily. 5. Citalopram 40 mg at bedtime. FINAL DISCHARGE DIAGNOSES: Include: 1. Alcohol use disorder, severe. ADMIT: 05/06/2016 RM/LOC: [facility] MR#: [id number] [address] [address] RODRIGO TELLO E [address] [place] [address] General Discharge Summary SEX: M AGE: 21 : 1995 2. Cannabis use disorder, severe. 3. Opiate use disorder, moderate. 4. Benzodiazepine use disorder, moderate. 5. History of alcohol abuse and dependency, withdrawal seizures. 6. Chewing tobacco dependency. 7. Antisocial personality traits. 8. Rule out antisocial personality disorder. 9. Substance-induced mood disorder. 10.Recent chlamydia, treated with Zithromax. PROCEDURES: Include drug and alcohol abuse dependency treatment and counseling and completion of his therapy for chlamydia. John Leggett MD/ maddison JOB #: [id number] CC: John Leggett MD, Attending Physician NO FAMILY PHYSICIAN, Family Physician
== END 2016-06-03 13:10 | disposition home or self-care (01) | DRG 895 ==
LOC: ADTC 09:59
PROVIDERS: ADMIT Family Medicine
PROC: HZ34ZZZ Individual Counseling for Substance Abuse Treatment, Interpersonal (ICD-10-PCS; principal; 2016-05-06)
PROC: HZ43ZZZ Group Counseling for Substance Abuse Treatment, 12-Step (ICD-10-PCS; principal; 2016-05-06)
PROC: HZ63ZZZ Family Counseling for Substance Abuse Treatment (ICD-10-PCS; principal; 2016-05-06)
DX: F10.20 Alcohol dependence, uncomplicated (principal); F13.20 Sedative, hypnotic or anxiolytic dependence, uncomplicated; F11.20 Opioid dependence, uncomplicated; F12.20 Cannabis dependence, uncomplicated; F60.2 Antisocial personality disorder; F19.24 Other psychoactive substance dependence with psychoactive substance-induced mood disorder; F17.220 Nicotine dependence, chewing tobacco, uncomplicated; Z65.3 Problems related to other legal circumstances; Z56.0 Unemployment, unspecified

== ENCOUNTER 2016-07-10 01:46 | Emergency (ER) | payer OTHER ==
--- NOTE | 2016-07-17 07:39 | ER ---
ADMIT: 07/10/2016 RM/LOC: ER [facility] MR#: [id number] [address] [address] KOFI TELLO [address] [facility] [place] [address] [facility] Emergency Room Report SEX: M AGE: 21 : 1995 DATE: 07/10/2016 ADDENDUM: A 21-year-old male, comes in with police for medical clearance for alcohol intoxication. The patient states he has no medical problems. He has no complaints at this time. He is obviously intoxicated, but alert, in no distress. Physical exam was unremarkable for any signs of injury. He was not in respiratory distress. Heart and lung exam was unremarkable. The patient is discharged to go to half-way in custody of the police with the diagnosis of alcohol intoxication and medical clearance. Je Lopez MD/ maddison JOB #: [id number] CC: Je Lopez MD, Attending Physician
== END 2016-07-10 02:03 ==
LOC: ER 01:46
DX: Z02.89 Encounter for other administrative examinations (principal); F10.129 Alcohol abuse with intoxication, unspecified; Z79.899 Other long term (current) drug therapy

== ENCOUNTER 2016-08-31 12:52 | Inpatient (IN) | payer OTHER ==
[~2016-08-31] VITALS: Ht 175.3 cm; Wt 75.6 kg
--- NOTE | ~2016-08-31 | CLPRLASSUM ---
"PATIENT: KOFI TELLO | | [facility] UNIT #: [id number] | [address] AGE/SEX: 21 M : [birth year] | [address] | [place] [address] ADMIT/REG DATE: 08/31/16 | ROOM: [facility] LOC: ADTC | ADTC | Client Problem List/Assessment Summary Date: 09/02/16 Problems identified by the client: Relapse issues, let peers influence me, chemicals and feelings. Problems identified by significant others: Chemical use and anger. Client's Strengths: Hard worker. Problem List: Code: T Client is easily influenced by peers and needs to learn to take a stand for responsible behavior to avoid relapse. 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 Code: T Client's method of expressing anger is frequently harmful to self and/or others and/or property and is made worse by substance abuse. Code Matthews: T: to be addressed during course of treatment O: problem noted, expected to resolve itself with abstinence--specific tx plan not required R: problem noted, will be referred upon discharge PRIMARY COUNSELOR: Eulalio Cruz, AMADA, LADC, CSAT"
--- NOTE | ~2016-08-31 | INDIVTXPLN ---
"PATIENT: KOFI TELLO | | [facility] UNIT #: [id number] | [address] AGE/SEX: 21 M : [birth year] | [address] | [place] [address] ADMIT/REG DATE: 08/31/16 | ROOM: [facility] LOC: ADTC | ADTC | Individualized Treatment Plan Date: 09/02/16 Problem Statement/Issue Identified: I struggle with accepting what is going on in my life and at times I feel depressed because of it. Goal: I want to be able to accept where I am and feel good about my self and not worry about what my old using buddies think. Objectives/Activities to achieve goal: 1. I will read the chapter on acceptance and share what it means to me with my counselor and in group. Due Date:On going Complete: Incomplete: 2. I will create a gratitude list and ad a minimum of one thing to it a day. Due Date:On going Complete: Incomplete: 3. I will use positive affermations to help me think positive. Due Date: On going Complete: Incomplete: Client signature Date Counselor signature Date Outcome/Measurement of Progress Towards Goal: Counselor's signature Date "
--- NOTE | ~2016-08-31 | INDIVTXPLN ---
"PATIENT: KOFI TELLO | | [facility] UNIT #: [id number] | [address] [facility] AGE/SEX: 21 M : [birth year] | [address] | [place] [address] ADMIT/REG DATE: 08/31/16 | ROOM: [facility] LOC: ADTC | ADTC | Individualized Treatment Plan Date: 09/02/16 Problem Statement/Issue Identified: I continued to use even though I was in a treatment program. I have not been able to manage my life in a positive manner. Goal: I want to learn about my addiction and identify consequences of my use and learn to work the AA/NA program. Objectives/Activities to achieve goal: 1. I will read and fill out the Getting Started packet, identifying my feelings about being in treatment and identifying things I do now and things I need to work on as evidenced by his progress notes. Due Date:09/07/16 Complete: Incomplete: 2. I will read a Step 1 booklet and fill out a Step 1 packet identifying how I am powerless and how my life has become unmanageable. I will share it with my counselor and selected parts in group as evidenced by individual and group notes. Due Date:09/07/16 Complete: Incomplete: 3. I will talk at a minimum of 2 meetings a week and get a phone number of a male sponsor I can call while I am in treatment on weekends. I will report my progress to my counselor as evidenced by individual notes. Due Date:On going Complete: Incomplete: 4. I will create gratitude list and add one thing to it each day. Due Date: Ongoing Complete: Incomplete: Client signature Date Counselor signature Date Outcome/Measurement of Progress Towards Goal: Counselor's signature Date "
--- NOTE | ~2016-08-31 | RESCARESUM ---
"PATIENT: KOFI TELLO | | [facility] UNIT #: [id number] | [address] [facility] AGE/SEX: 21 M : [birth year] | [address] | [place] [address] ADMIT/REG DATE: 08/31/16 | ROOM: [facility] LOC: ADTC | ADTC | Summary of Residential Care Primary Counselor: AMADA Butcher LADC, VALARIE Date of Admission: 08/31/16 Date of Discharge: 09/07/16 Referral Source: Probation and AMADA Espinosa LADC Primary Care Provider Prior to Admission: None Admitting Diagnosis: F10.20 Alcojol Use Disorder Severe, F12.20 Cannabis Use Disorder Severe, F15.20 Stimulant Use Disorder Severe, 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 Continued Obstacles to Sobriety/Relapse Issues: Having reservations about stoping his use. Family Issues Addressed: No family issues were addressed. y Individual Therapy y Group Therapy y Educational Series on Substance Abuse n Parents/Significant Others Attended Family Program n Acute Medical Problems During the Course of Treatment n Transferred to Hospital During the Course of Treatment n Accepting of Substance Abuse Problem y Non-accepting of Substance Abuse Problem n Required Psychological or Psychiatric Consultation During the Course of Treatment Completed AA Step # no steps were completed. During This Level of Care Significant Incidences During Treatment: Client left AMA and did not share any reasons why. Reason For Discharge: n Completed Residential [place] Goals and Ready For Next Level of Care y Left Tx Against Medical Advice/Treatment Goals Not Complete n Completed Residential Tx Goals But Refusing Continuing Care Recommendations n Discharged Due to Noncompliance/Treatment Goals not Completed y Discharged Earlier Than Planned Due to: Leaving AMA. Continuing Care Plan/Recommendations: n Intensive Partial Care y Sponsor n Partial Care y AA Meetings/NA Meetings n Outpatient n Co-dependency Services n Therapeutic Community y [facility] House y 3/[facility] House PATIENT: KOFI TELLO | | [facility] UNIT #: [id number] | [address] AGE/SEX: 21 M : [birth year] | [address] | [place] [address] ADMIT/REG DATE: 08/31/16 | ROOM: [facility] LOC: ADTC | ADTC | Summary of Residential Care n Mental Health Therapy n Marriage Counseling n Other Specific Continuing Care Plan: Client needs to complete a residential program and go to a half way house and follow all of their recommendations or go to a fpc treatment facility such as [facility]. PRIMARY COUNSELOR: Eulalio Cruz, AMADA, LADC, CSAT"
--- NOTE | 2016-08-31 13:59 | NUR ---
Admit Note: Client is a 21 y/o single male. Was living at [facility] and was kicked out. Spent last 30 days in fpc and comes back to tx as probation recommendation. Father brought to tx. Should have family participation. Clt searched and no contraband found. Initial paperwork is done and has started programming.
--- NOTE | 2016-08-31 14:54 | NUR ---
I.S. 1 Hr/Client shared he wants to stop but does not havethe desire and is impulsive. Does not like to be told what to do. Is to read the chapter on acceptance and will work on relapse prevention.
--- NOTE | 2016-08-31 20:19 | NUR ---
Education: 1 hour lecture given by counselor on relapse.
--- NOTE | 2016-08-31 20:27 | NUR ---
tech note: Client went for walk for rec, participated in guided meditation and attended AA meeting
--- NOTE | 2016-08-31 23:41 | NUR ---
Tech Note: Client attended the on unit A.A.Meeting. Client participated in Guided Meditation at 1930. Client was seen by doctor. SE: coming to treatment
--- NOTE | 2016-09-01 04:58 | NUR ---
Bed note: client was in bed with eyes closed and no distress at all bed checks.
--- NOTE | 2016-09-01 10:22 | NUR ---
Tech notes: Client is working on Getting started
--- NOTE | 2016-09-01 13:49 | NUR ---
Educational note: Client watched a video for education.
--- NOTE | 2016-09-01 14:00 | NUR ---
LARGE AM GROUP 4:10.5 HR: A large group was held to address and difuse issues on the Unit that were initially brought up but not resolved in Community meeting. Some clients are confronting bad attitudes, violations of guidelines and three clandestine relationships that have been confronted multiple times, but the individuals continue the behavior. Clients were reminded that keeping secrets or covering for others just keeps us sick and is definitely old behavior. Efforts were made to focus on solutions vs. the problem. Some appeared to understand, while others continued to blame and accuse. This client was accused of being dishonest with the group, denying any previous relationships with current peers. Client got defensive suggesting that his accuser focus on her own issues and stop pointing fingers. Client said there are people he recognizes from the streets but none that he hung out with. Client also identified one individual that he was in long term with but doesn't know personally.
--- NOTE | 2016-09-01 17:16 | NUR ---
SPIRITUaL EDUCATION 1 HR. Clients were oriented to the group and learned difference between spirituality and baptist. We addressed GRATITUDE today with discussion, worksheet and activity.
--- NOTE | 2016-09-01 18:25 | NUR ---
Education: 1 Hour. Client attended "Self Esteem" lecture presented by staff.
--- NOTE | 2016-09-01 23:38 | NUR ---
tech note: client went on a walk for recreation & attended the onsite NA meeting. Client was seen with his feet on the furniture,took them off when he saw the tech. SE: [place].
--- NOTE | 2016-09-02 05:13 | NUR ---
Bed Note: Clt lay motionless in bed with eyes closed showing no distress at all bed checks.
--- NOTE | 2016-09-02 11:22 | NUR ---
Tech Note: Client participated in Spiritual Enrichment. Client stated that he is working on, "How to Get Started in Treatment."
--- NOTE | 2016-09-02 11:55 | NUR ---
Group 1.5 Hr Ratio 1:10/Topics today were two step ones, two Gettings started packets andtwo feelings letters. Client shared how he could relate to what peers were sharing from assignments.
--- NOTE | 2016-09-02 13:42 | NUR ---
I.S. 1 Hr/Client BSP wa covered and client wants to stay sober but is struggling with the desire to stay clean and sober for the long haul. Talked about using his wrestling desire to use it to stay sober. Application to the [facility] has been sent.
--- NOTE | 2016-09-02 17:02 | NUR ---
step education 1 hr/ Focus was on step 6 and looking at character defects and letting God remove them. Each person took some time looking at a list of character defects and wrote out answers to a set of questions and then shared and discussed. This client participated. He shared some defects are anger,manipulation, resentment and judgmental.
--- NOTE | 2016-09-02 19:16 | NUR ---
Education 1 Hour: Client heard a presentation on marijuana.
--- NOTE | 2016-09-02 22:13 | NUR ---
Education 1 HR: Clt watched video by Tyler "Vdia Kohler" with staff present.
--- NOTE | 2016-09-02 22:44 | NUR ---
Tech Note: Clt walked for recreation, attended GM and onsite AA mtg. SE was counselor mtg
--- NOTE | 2016-09-03 04:46 | NUR ---
Bed Note: Clt lay motionless in bed with eyes closed showing no distress at all bed checks.
--- NOTE | 2016-09-03 11:30 | NUR ---
Group 1.5 hr/ 11:1 Clients all heard peers share in discussion about when is it addiction with loss of control or being a "functional addict" as peer asked questions. Also they introduced self to newcomer. This client did give feedback (and peer looked at him nodding like peer thinks this client relates with being a functional addict)
--- NOTE | 2016-09-03 16:00 | NUR ---
PEER REVIEWS 1.25 HRS: Clt participated in peer reviews and took a risk to give open and honest feedback to those receiving a review.
--- NOTE | 2016-09-03 16:33 | NUR ---
Tech Note: Client listened to speaker Howard Florentino and is working on Getting Started.
--- NOTE | 2016-09-03 21:22 | NUR ---
Tech note: client watched TV and movies. Walked to optional offiste AA meeting. SE:walk
--- NOTE | 2016-09-04 05:00 | NUR ---
Bed note: Client was in bed with eyes closed and no distress at all bed checks.
--- NOTE | 2016-09-04 16:57 | NUR ---
Tech Note: Client attended the A.A.Meeting at [facility] and [facility] and is working on Getting Started/Graditude list. Client was late to morining meditation.
--- NOTE | 2016-09-04 19:35 | NUR ---
tech note: client c/o of congestion @ 1933,mucinex 600 mg given.
--- NOTE | 2016-09-04 23:05 | NUR ---
Tech note: Client walked around the park a few times for rec. Client walked to an off site AA meeting. SE: Nap
--- NOTE | 2016-09-05 05:04 | NUR ---
Bed note: client was in bed with eyes closed and no distress at all bed checks.
--- NOTE | 2016-09-05 15:37 | NUR ---
TECH NOTE: Client participated in big book study, attended taoist, completed chores and watched tv/movies.
--- NOTE | 2016-09-05 23:44 | NUR ---
tech note: Client participated in [facility] [employer]. Client was redirected by [employer] for not signing the board at tech station when he is going to his room. Client watched tv. SE:friends at meeting.
--- NOTE | 2016-09-06 04:47 | NUR ---
Bed note: client was in bed with eyes closed and no distress at all bed checks.
--- NOTE | 2016-09-06 11:25 | NUR ---
Client was seen by a member of [employer] in the basement on the phone. When tech asked him about it he said he was just seeing if it works. Phone isn't even near bathrooms.
--- NOTE | 2016-09-06 15:19 | NUR ---
Tech note: Client is working on Getting started. Was reported using phone at [employer].
--- NOTE | 2016-09-06 23:08 | NUR ---
Tech Note: Clt walked for recreation and attended onsite NA mtg. Watched tv and movies. SE was visit
--- NOTE | 2016-09-07 04:46 | NUR ---
Bed Note: Clt lay motionless in bed with eyes closed showing no distress at last two bed checks. The first bed check clt looked at tech.
--- NOTE | 2016-09-07 07:41 | NUR ---
Elias. 1 Hr/Client shared his GS packet and did good looking at some things different as far as being creative, self centered and afraid. Also talked about fears and disappointments about mom always reminding him of bad things he has done and number of times he hs been in tx.
--- NOTE | 2016-09-07 15:40 | NUR ---
Tech Note: Client participated in light stretching for morning exercise and went on an outdoor walk in the afternoon. Client stated that he is working on Step One and writing a gratitude list.
--- NOTE | 2016-09-07 15:49 | NUR ---
Education 1 Hour: Client watched the video, "How to Sabotage your Treatment."
--- NOTE | 2016-09-07 23:15 | NUR ---
DISCHARGE NOTE Client left with all of his belongings at 19;58. Client spoke with staff, first agreeing to stay till tomorrow and speak with his PO but then decided to leave tonight.
--- NOTE | 2016-09-11 11:58 | HP ---
ADMIT: 08/31/2016 RM/LOC: [facility] MR#: [id number] [id number] [address] [facility] [address] [place] [id number] [address] [place] [address] History and Physical SEX: M AGE: 21 : 1995 DATE OF SERVICE: CHIEF COMPLAINT: Alcohol and drug problem, recent relapse. CLINICAL HISTORY: The patient is a 21-year-old, white male, admitted to the residential care program for further treatment of his cannabis use disorder and alcohol use disorder as well as methamphetamine use disorder. The patient readily admits that he is an alcoholic and a drug addict and notes that this is his 5th time in treatment. This is his third time at the [facility]. He most recently was here at the treatment center from 05/06/2016 until completion of treatment on 06/03/2016. Following his treatment earlier this year, he went to the [facility]. He was there for approximately a month, but was kicked out of the [facility] after relapsing in late June of 2016. For the last 2 months, he has been drinking heavily and once again smoking pot. The patient has been in assisted for the last 21 days because of his drinking and using marijuana while on probation. The patient returns to treatment so that he can once again get back into the [facility]. This is a portion of his probation agreement that he needs to reside at the [facility] until dismissed with their approval. The patient notes that he previously has been in treatment here at the [facility] on 3 previous occasions. As noted most recently in April and May of 2016, he has been at [facility] on 2 previous occasions, and at age 15, he was here at the [facility]. The patient notes his drug of choice is alcohol. He first started drinking at about age 12. He has been drinking regularly since age 13. He notes his drinking escalated significantly when he went to college at [employer]. He notes he typically will drink a minimum of a 12 pack of beer per day or more. Once he has been drinking beer for while, he usually starts adding in hard liquor, drinking at least a pint or more along with the beer that he has consumed drinking to the point that he has blackouts. He also has a history of a previous withdrawal seizure. It was precipitated when he came off alcohol and benzodiazepines at the same time. This was in October of 2015. His second drug of choice is marijuana. He has been smoking pot since age 13. He has been a daily user since age 13 smoking up to as much as an 8th of an ounce per day. He notes he has started using methamphetamine at age 14 and has used meth on a very limited basis, but his last use of methamphetamine dating prior to his last admission. Since he was in treatment here in April and May, he has not used methamphetamine. His third drug of choice is opiates. He has abused hydrocodone and oxycodone in the past. He notes when he is drinking or partying with friends he will take whatever pain pills are available. He notes that his use of opiates started after he had a couple of shoulder surgeries. He found out he really liked those especially mixing them with alcohol. He notes typically he would use up to six 10 mg hydrocodone per day. His 4th drug of choice is benzodiazepine. Usually, he bought those on the street, although he has been able to get some Xanax prescriptions from his primary care physician. The patient notes that he has abused benzodiazepines off and on since age 16. Since his withdrawal seizure in October of 2015, he has not taken any of the benzodiazepines. He notes he has experimented with other drugs on a very limited basis including cocaine, hallucinogens such as mushrooms. As noted, following his last treatment, he went to the nursing home ADMIT: 08/31/2016 RM/LOC: [facility] MR#: [id number] [address] [facility] [address] [place] [id number] [address] [place] [address] History and Physical SEX: M AGE: 21 : 1995 house, but only resided there for a month before being kicked out for relapse. Once again, he returns to treatment at this time to be in compliance with his probation agreement. PAST MEDICAL HISTORY: RECENT HOSPITALIZATIONS: As noted, he was here at the [facility] from 05/06/2016 through 06/03/2016. He has had no other recent hospitalizations. He does note previous surgery on his left shoulder on 3 occasions. These have all been outpatient surgeries, have been for previous rotator cuff injury. CURRENT MEDICATIONS: Include: 1. Celexa 40 mg daily. 2. Venlafaxine 75 mg 1 daily. 3. BuSpar 10 mg twice a day. ALLERGIES: NONE KNOWN. SOCIAL HISTORY: The patient is a 21-year-old, single male. He attended [employer] for 4 years, but never graduated. 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 He is currently unemployed. He was working for the first month while he was at the [employer] working with a [employer] company, but once he relapsed and started drinking and using drugs again go to work and he lost that job. In addition to his drinking and drug use, he is a tobacco user. He smokes 2 to 3 cigarettes a day as well as chews a can of chew per week. FAMILY HISTORY: Negative for drug and alcohol problems. Notes a history of heart disease with his paternal grandfather. Notes his maternal grandmother had cancer of some type. He notes his father has hypertension. He is unaware of any significant family history of substance abuse. REVIEW OF SYSTEMS: A 12-point review of systems is negative other than for his chronic left shoulder problems. He denies any IV drug use. He has no significant history of cardiac, pulmonary GI, , musculoskeletal, or neurologic problems other than for that history of one prior withdrawal seizure. PHYSICAL EXAMINATION: VITAL SIGNS: Temp is 97.3, pulse 95, respirations 14, blood pressure 144/91, height 5 feet 9 inches, and weight 165 pounds. GENERAL: The patient is a 21-year-old, white male, who appears his stated age. He is in no acute distress. He is alert and oriented x3. HEENT: Exam reveals his pupils to be equal and reactive. Ears are clear. Eyes are unremarkable. Extraocular movements intact. Sclerae are nonicteric. Nose and throat noninflamed. Oropharynx is unremarkable. Do note that he has old injury to his left ear from wrestling, i.e., cauliflower ear. NECK: Supple. Thyroid not enlarged. No cervical adenopathy. LUNGS: Noted to be clear. ADMIT: 08/31/2016 RM/LOC: [facility] MR#: [id number] [address] [place] [id number] [address], [address] [place] [address] History and Physical SEX: M AGE: 21 : 1995 HEART: Regular rhythm without murmur. ABDOMEN: Soft, nontender. No masses or organomegaly. GENITALIA: Normal male. EXTREMITIES: Normal to gross exam. Does have some limitation of motion of his left shoulder. Scars on the left shoulder from previous surgery. NEUROLOGICAL: He is intact with no focal deficit. Balance and gait are normal. MENTAL STATUS EXAMINATION: He is pleasant and cooperative. Affect is appropriate. He has no bizarre ideation. No delusions or hallucinations. No significant depressive symptoms. He is oriented x3. His memory is intact. His insight is limited. Judgment is guarded. ASSESSMENT AT THE TIME OF ADMISSION: 1. Alcohol use disorder, severe. 2. Cannabis use disorder, severe. 3. Opioid use disorder moderate. 4. Benzodiazepine use disorder, moderate. 5. History of alcohol and benzodiazepine withdrawal seizure in October of 2015. 6. Tobacco use disorder. 7. Antisocial personality traits. 8. Substance-induced mood disorder. PLAN: Readmit the patient to the residential care program. As noted, this will be his 5th time in treatment. On the 3rd time, he is here at the [facility]. Plan is for tentative discharge date of 09/28/2016. Upon completion of treatment, he wants to return to the [facility] and reside there for 6 to 9 months until dismissed with staff approval to be in compliance with his probation agreement. While in the treatment program, we will continue his current psychotropic medications. He will need ongoing mental health care and counseling post treatment as well. Lisandro Salazar MD/ maddison JOB #: [id number] CC: Lisandro Salazar, Attending Physician UNKNOWN, Family Physician
--- NOTE | 2016-10-13 12:37 | DS ---
ADMIT: 08/31/2016 RM/LOC: Kemi [facility] MR#: [id number] [facility]#: [id number] [facility] [address] [phone] [address] [place], [place] [address] General Discharge Summary SEX: M AGE: 21 : 1995 ADMISSION DATE: 08/31/2016 DISCHARGE DATE: 09/07/2016 This is from his admission to the Residential Care Program to [facility]. ADMITTING DIAGNOSIS: As per history and physical. FINAL DIAGNOSES: 1. Alcohol use disorder, severe. 2. Cannabis use disorder, severe. 3. Opioid use disorder, moderate. 4. Benzodiazepine use disorder, moderate. 5. History of alcohol and benzodiazepine withdrawal seizure. 6. Tobacco use disorder. 7. Antisocial personality traits. 8. Substance-induced mood disorder. COMPLICATIONS: None. OPERATIONS: None. CLINICAL HISTORY: The patient is a 21-year-old white male, admitted to the residential care program for further treatment of his cannabis use disorder as well as his alcohol use disorder and methamphetamine use disorder. For details of his pattern of usage and problems associated with his ongoing substance abuse and chemical dependency, please see clinical history portion of the dictated history and physical. Please also see dictated history and physical for pertinent findings on physical exam. LABORATORY AND X-RAY SUMMARY FROM THIS ADMISSION: None indicated, none performed. HOSPITAL COURSE: The patient was admitted to the residential care program at the [facility], was admitted on 08/31/2016. He remained in the treatment program for only 1 week. The patient left AMA without explaining to staff why he was leaving after being there for only 1 week. While in treatment, his primary counselor was Eulalio Cruz. While in treatment, he participated in individual and group therapy. Since he left after only 1 week, he did not actively participated in the family portion of the program. He was given the educational series on substance abuse, but had no time to complete any of these assignments. While in treatment, he was non-accepting of his substance abuse problem. He was just getting started and really getting involved in the treatment process when he left AMA without any explanation to the staff. He was unable to complete any of his treatment goals. He did not complete any of the steps of AA. He left treatment against medical advice. At discharge, no aftercare plan had been established since he walked out AMA. It was recommended that he needs to return to a residential treatment program, complete treatment, and then go to a senior living house. He was encouraged to participate in AA and NA, but his prognosis was felt to be extremely poor. ADMIT: 08/31/2016 RM/LOC: Joe511 [facility] MR#: [id number] [address] [place] [phone] [facility] [place] [place] [address] General Discharge Summary SEX: M AGE: 21 : 1995 CONDITION AT DISCHARGE: Unchanged. MEDICATIONS: At discharge, he was encouraged to remain on his admission medications which included: 1. Celexa 40 mg daily. 2. Venlafaxine 75 mg daily. 3. BuSpar 10 mg twice a day. He was encouraged to continue his medications for mood stabilization and treatment of his depression. As noted, condition at discharge is unchanged. PROGNOSIS: Poor. Lisandro Salazar MD/ maddison JOB #: [id number] CC: Lisandro Salazar MD, Attending Physician UNKNOWN, Family Physician
== END 2016-09-07 19:58 | disposition left against medical advice (07) | DRG 894 ==
LOC: ADTC 12:52
PROVIDERS: ADMIT Family Medicine
PROC: HZ43ZZZ Group Counseling for Substance Abuse Treatment, 12-Step (ICD-10-PCS; principal; 2016-08-31)
PROC: HZ34ZZZ Individual Counseling for Substance Abuse Treatment, Interpersonal (ICD-10-PCS; principal; 2016-08-31)
DX: F10.20 Alcohol dependence, uncomplicated (principal); F11.20 Opioid dependence, uncomplicated; F13.20 Sedative, hypnotic or anxiolytic dependence, uncomplicated; F12.20 Cannabis dependence, uncomplicated; F17.210 Nicotine dependence, cigarettes, uncomplicated; F32.9 Major depressive disorder, single episode, unspecified; F60.2 Antisocial personality disorder; F19.24 Other psychoactive substance dependence with psychoactive substance-induced mood disorder; Z65.3 Problems related to other legal circumstances; Z56.0 Unemployment, unspecified

== ENCOUNTER 2016-09-08 17:32 | Emergency (ER) | payer BC ==
--- NOTE | 2016-09-26 15:51 | ER ---
ADMIT: 09/08/2016 RM/LOC: ER [facility] MR#: [id number] [address] [id number] [address] [place] [address] Emergency Room Report SEX: M AGE: 21 : 1995 DATE: 09/08/2016 This is a 21-year-old who was apprehended by the police for alcohol intoxication. He is brought to the Emergency Department for medical clearance for long term. See T-sheet for history and physical. The patient has been medically screened and cleared for long term. Eddy Wiseman MD/ maddison JOB #: [id number] CC: Eddy Wiseman MD, Attending Physician
== END 2016-09-08 17:35 ==
LOC: ER 17:32
DX: F10.129 Alcohol abuse with intoxication, unspecified (principal)